=== PATIENT | male | born 1985 | race American Indian/Alaskan Native ===

== ENCOUNTER 2024-12-15 20:05 | Emergency (ER) | payer OTHER ==
[~2024-12-15] VITALS: Ht 182.9 cm; Wt 98.5 kg
[2024-12-15] MEDS ORDERED: JANTOVEN1 MG PO (20:23)
[2024-12-15] MEDS ORDERED: ABILIFY2 MG PO (20:23)
[2024-12-15] MEDS ORDERED: GLIPIZIDE5 MG PO (20:24)
[2024-12-15] MEDS ORDERED: EFFEXOR XR37.5 MG PO (20:24)
[2024-12-15] MEDS ORDERED: TRICOR48 MG NG (20:25)
[2024-12-15] MEDS ORDERED: METFORMIN HCL500 MG PO (20:25)
[2024-12-15] MEDS ORDERED: LIPITOR10 MG (20:25)
[2024-12-15] MEDS ORDERED: ZYPREXA20 MG PO (20:26)
[2024-12-15] MEDS ORDERED: LIDOCAINE/RACEPINEP/TETRACAINE 3 ML SYR TOP ONE (20:45)
[2024-12-15] MEDS ORDERED: DIPHTH,PERTUSS(ACELL),TET VAC 0.5 ML SYRINGE IM ONE (20:45)
[2024-12-15 21:35] LABS: INR 1.78 (0.80-1.30); PROTIME 19.6 Sec (11.2-14.2)
[2024-12-15 22:16] VITALS: BP 152/86
== END 2024-12-15 22:25 | disposition other institution, planned readmission (95) ==
LOC: ED 20:05
PROVIDERS: Internal Medicine
DX: S31.114A Laceration without foreign body of abdominal wall, left lower quadrant without penetration into peritoneal cavity, initial encounter (principal); Z86.718 Personal history of other venous thrombosis and embolism; Z88.2 Allergy status to sulfonamides; Z88.1 Allergy status to other antibiotic agents; Z88.8 Allergy status to other drugs, medicaments and biological substances; Z79.01 Long term (current) use of anticoagulants; Z79.84 Long term (current) use of oral hypoglycemic drugs; Z79.899 Other long term (current) drug therapy; X78.8XXA Intentional self-harm by other sharp object, initial encounter
CPT/HCPCS: 12002; 36415; 85610; 90471; 90715; 99283-25